=== PATIENT | male | born 1990 | race Caucasian/White ===

== ENCOUNTER 2017-08-23 21:29 | Emergency (ER) | payer SELFPAY ==
[~2017-08-23] VITALS: Ht 185.4 cm; Wt 100.0 kg
[2017-08-23 21:39] VITALS: Ht 185.4 cm; Wt 100.0 kg
[2017-08-24] MEDS ORDERED: SILVADENE20 GM TP (00:16)
[2017-08-24] MEDS ORDERED: TYLENOL W/CODEI1 TAB PO (00:16)
[2017-08-24 01:06] VITALS: BP 125/76
== END 2017-08-24 01:08 | disposition home or self-care (01) ==
LOC: D.ER 21:29
DX: T23.002A Burn of unspecified degree of left hand, unspecified site, initial encounter (principal); X08.8XXA Exposure to other specified smoke, fire and flames, initial encounter; Y93.89 Activity, other specified; Y92.89 Other specified places as the place of occurrence of the external cause; F17.200 Nicotine dependence, unspecified, uncomplicated

== ENCOUNTER 2018-01-11 18:05 | Emergency (ER) | payer SELFPAY ==
[~2018-01-11] VITALS: Ht 185.4 cm; Wt 86.4 kg
[~2018-01-11 18:05] MED LIST: SILVADENE20 GM TP; TYLENOL W/CODEI1 TAB PO
[2018-01-11 18:12] VITALS: BP 122/45; Ht 185.4 cm; Wt 86.4 kg
== END 2018-01-11 20:02 | disposition home or self-care (01) ==
LOC: D.ER 18:05
DX: S01.511A Laceration without foreign body of lip, initial encounter (principal); W18.30XA Fall on same level, unspecified, initial encounter; Y93.89 Activity, other specified; Y92.019 Unspecified place in single-family (private) house as the place of occurrence of the external cause; F17.200 Nicotine dependence, unspecified, uncomplicated